=== PATIENT | male | born 1950 | race Caucasian/White ===

== ENCOUNTER 2016-12-23 08:50 | Inpatient (IN) ==
--- NOTE | 2016-12-23 08:57 | Emergency Department Note ---
Disposition Clinical Impression: Urethritis, Urethral bleeding, Atrial fibrillation Disposition: Admitted As Inpatient Condition: Good General Adult HPI - General Chief complaint: ED Urogenital-Male Stated complaint: Bleeding at calvillo site Time Seen by Provider: 12/23/16 08:55 - Related Data Home Medications Medication Instructions Recorded Confirmed Glimepiride [Amaryl] 4 mg PO BID 02/22/15 12/23/16 Lovastatin 20 mg PO DAILY 02/22/15 12/23/16 Furosemide [Lasix] 40 mg PO DAILY 02/12/16 12/23/16 Insulin ASPART [Novolog] 2 - 10 units SQ ACHS 02/12/16 12/23/16 Acetaminophen [Tylenol] 650 mg PO HS 03/11/16 12/23/16 Acetaminophen [Tylenol] 650 mg PO Q6H PRN 03/11/16 12/23/16 Diltiazem CD (24hr) [Cardizem CD] 240 mg PO DAILY 03/11/16 12/23/16 Loperamide [Imodium] 2 mg PO PRN PRN MDD 8 mg 03/11/16 12/23/16 SitaGLIPtin [Januvia] 100 mg PO DAILY 06/10/16 12/23/16 Warfarin [Coumadin] 2 mg PO DAILY 06/10/16 12/23/16 Warfarin [Coumadin] 2.5 mg PO DAILY 06/10/16 12/23/16 Clopidogrel [Plavix] 75 mg PO DAILY 12/09/16 12/23/16 Insulin Glargine,Hum.rec.anlog 10 unit SQ HS 12/09/16 12/23/16 [Lantus Solostar] Lisinopril [Zestril] 5 mg PO DAILY 12/09/16 12/23/16 Pantoprazole Sodium 20 mg PO DAILY 12/09/16 12/23/16 Betamethasone Melissa 0.1% Crm 1 appl TP BID PRN 12/23/16 12/23/16 [Valisone 0.1%] Hydrophilic Ointment [Aquabase] 1 appl TP BID PRN 12/23/16 12/23/16 Ketoconazole Shampoo [Nizoral 1 appl TP AD 12/23/16 12/23/16 Shampoo] Previous Rx's Medication Instructions Recorded Aspirin 81 mg PO DAILY #30 tab.chew 03/07/15 Folic Acid 1 mg PO DAILY tablet 03/07/15 Metformin [Glucophage] 1,000 mg PO BIDWM #60 tablet 03/07/15 Metoprolol [Lopressor] 100 mg PO BID #60 tablet 03/07/15 Allergies Allergy/AdvReac Type Severity Reaction Status Date / Time No Known Allergies Allergy Verified 12/09/16 09:52 Past Medical History - Past Medical History Medical history: Reports: atrial fibrillation, coronary artery disease, diabetes , hyperlipidemia, hypertension Surgical history: Reports: angioplasty/stent Psychiatric history: Reports: no psych history - Social History Smoking Status: Never smoker Smokeless Tobacco Status: No Alcohol use: Reports: occasionally Drug use: Reports: none Course Vital Signs Temperature 98.0 F 12/23/16 08:52 Pulse Rate 111 12/23/16 08:52 Respiratory Rate 17 12/23/16 08:52 Blood Pressure 180/128 12/23/16 08:52 O2 Sat by Pulse Oximetry 100 12/23/16 08:52 Temperature 98.3 F 12/25/16 04:21 Pulse Rate 65 12/25/16 04:21 Respiratory Rate 15 12/25/16 04:21 Blood Pressure 125/65 12/25/16 04:21 O2 Sat by Pulse Oximetry 94 12/25/16 04:21 Oxygen Delivery Oxygen Delivery Room Air Medical Decision Making - Lab Data Result diagrams: 12/25/16 05:43 12/25/16 05:43 Lab Results 12/23/16 12/23/16 12/23/16 Range/Units 09:19 09:19 09:19 WBC 9.4 (4.3-11.1) K/mcL RBC 5.11 (4.19-5.50) M/mcL Hgb 14.0 (12.9-16.9) g/dL Hct 43.5 (37.5-50.1) % MCV 85.1 (83.0-100.0) fL MCH 27.4 L (28.0-33.3) pg MCHC 32.2 (31.6-35.5) g/dL RDW 14.3 (11.5-14.5) % Plt Count 296 (140-400) K/mcL MPV 9.5 (9.4-12.4) fL Immature Gran % 0.6 (0-4) % Seg Neutrophils % 76.7 % Lymphocytes % 9.0 % Monocytes % 9.5 % Eosinophils % 3.6 % Basophils % 0.6 % Neutrophils # 7.2 (1.6-8.9) K/mcL Lymphocytes # 0.9 (0.6-4.6) K/mcL Monocytes # 0.9 (0.0-1.3) K/mcL Eosinophils # 0.3 (0.0-0.6) K/mcL Basophils # 0.1 (0.0-0.2) K/mcL PT 27.4 H (9.4-12.1) Seconds INR 2.5 APTT 35.6 (26.0-36.0) Seconds Sodium 139 (136-145) mEq/L Potassium 4.8 H (3.5-4.5) mEq/L Chloride 100 (98-109) mEq/L Carbon Dioxide 33 H (19-29) mEq/L BUN 23 (8-26) mg/dL Creatinine 1.18 (0.72-1.25) mg/dL Est GFR ( Amer) > 60 (> 60) Est GFR (Non-Af Amer) > 60 (> 60) BUN/Creatinine Ratio 19 (6-26) Glucose 181 H (70-99) mg/dL Est Mean Plasma Glucose mg/dl Hemoglobin A1c ( - 5.6) % Calculated Osmolality 296 (280-300) Calcium 9.5 (8.6-10.8) mg/dL 12/23/16 12/23/16 Range/Units 09:19 14:08 WBC (4.3-11.1) K/mcL RBC (4.19-5.50) M/mcL Hgb 14.4 (12.9-16.9) g/dL Hct 42.8 (37.5-50.1) % MCV (83.0-100.0) fL MCH (28.0-33.3) pg MCHC (31.6-35.5) g/dL RDW (11.5-14.5) % Plt Count (140-400) K/mcL MPV (9.4-12.4) fL Immature Gran % (0-4) % Seg Neutrophils % % Lymphocytes % % Monocytes % % Eosinophils % % Basophils % % Neutrophils # (1.6-8.9) K/mcL Lymphocytes # (0.6-4.6) K/mcL Monocytes # (0.0-1.3) K/mcL Eosinophils # (0.0-0.6) K/mcL Basophils # (0.0-0.2) K/mcL PT (9.4-12.1) Seconds INR APTT (26.0-36.0) Seconds Sodium (136-145) mEq/L Potassium (3.5-4.5) mEq/L Chloride (98-109) mEq/L Carbon Dioxide (19-29) mEq/L BUN (8-26) mg/dL Creatinine (0.72-1.25) mg/dL Est GFR ( Amer) (> 60) Est GFR (Non-Af Amer) (> 60) BUN/Creatinine Ratio (6-26) Glucose (70-99) mg/dL Est Mean Plasma Glucose 177 mg/dl Hemoglobin A1c 7.8 H ( - 5.6) % Calculated Osmolality (280-300) Calcium (8.6-10.8) mg/dL Attestation Statement - Attestation Attestation: I examined this patient and my medical decision-making was reviewed with the SUBACUTE NURSE/PA/Advanced Practice Nurse/Resident Physician. I agree with the documented findings, disposition and treatment plan as described except to the extent set forth below. [id number] time provided Patient presents from extended care facility for Calvillo catheter problems. It appears as if he is bleeding around his Calvillo catheter. Patient primarily evaluated by the mid-level provider Jayshree
[2016-12-23 09:29] LABS: Basophils # 0.1 K/mcL (0.0-0.2); Basophils % 0.6 %; Eosinophils # 0.3 K/mcL (0.0-0.6); Eosinophils % 3.6 %; Hematocrit 43.5 % (37.5-50.1); Immature Granulocytes % 0.6 % (0-4); Lymphocytes # 0.9 K/mcL (0.6-4.6); Mean Corpuscular HGB Conc 32.2 g/dL (31.6-35.5); Mean Corpuscular Hemoglobin 27.4 pg (28.0-33.3); Mean Corpuscular Volume 85.1 fL (83.0-100.0); Mean Platelet Volume 9.5 fL (9.4-12.4); Monocytes # 0.9 K/mcL (0.0-1.3); Monocytes % 9.5 %; Neutrophils # 7.2 K/mcL (1.6-8.9); Platelet Count 296 K/mcL (140-400); Red Blood Count 5.11 M/mcL (4.19-5.50); Red Cell Distribution Width 14.3 % (11.5-14.5); Segmented Neutrophils % 76.7 %
[2016-12-23 09:38] LABS: INR 2.5; Prothrombin Time 27.4 Seconds (9.4-12.1)
[2016-12-23 09:40] LABS: Activated Partial Thrombo Time 35.6 Seconds (26.0-36.0)
[2016-12-23 09:44] LABS: BUN/Creatinine Ratio 19 (6-26); Blood Urea Nitrogen 23 mg/dL (8-26); Calcium 9.5 mg/dL (8.6-10.8); Carbon Dioxide 33 mEq/L (19-29); Chloride 100 mEq/L (98-109); Glucose 181 mg/dL (70-99); Osmolality,Calculated 296 (280-300); Potassium 4.8 mEq/L (3.5-4.5); Sodium 139 mEq/L (136-145); eGFR For African Americans > 60 (> 60); eGFR For Non-African Americans > 60 (> 60)
--- NOTE | 2016-12-23 09:44 | Emergency Department Note ---
Disposition Clinical Impression: Urethritis, Urethral bleeding Atrial fibrillation Qualifiers: Atrial fibrillation type: chronic Qualified Code(s): I48.2 - Chronic atrial fibrillation Disposition: Admitted As Inpatient Condition: Good Forms: ED Satisfaction Letter Male Urogenital HPI - General Chief complaint: ED Urogenital-Male Stated complaint: Bleeding at calvillo site Time Seen by Provider: 12/23/16 08:55 Source: patient, EMS Mode of arrival: private vehicle Limitations: no limitations Nursing Notes Reviewed: Yes Vital Signs Reviewed: Yes - History of Present Illness Pt Subjective Complaint: other (bleeding around calvillo) Onset (ago): hour(s) (upon waking this AM) Duration: constant Location: penis Severity: mild, moderate Quality: other (no pain, just bleeding) Improves with: none Worsens with: none indwelling catheter (since 04/09; changed December 10 - twice - with subsequent bleeding upon insertion and diagnosis of UTI. Completed a course of Ceftin) Reports: denies other symptoms. Denies: discharge, swelling, mass, rash, urinary retention, hematuria, dysuria, fever, nausea/vomiting - Related Data Sexually active: No Home Medications Medication Instructions Recorded Confirmed Glimepiride [Amaryl] 4 mg PO BID 02/22/15 12/23/16 Lovastatin 20 mg PO DAILY 02/22/15 12/23/16 Furosemide [Lasix] 40 mg PO DAILY 02/12/16 12/23/16 Insulin ASPART [Novolog] 2 - 10 units SQ ACHS 02/12/16 12/23/16 Acetaminophen [Tylenol] 650 mg PO HS 03/11/16 12/23/16 Acetaminophen [Tylenol] 650 mg PO Q6H PRN 03/11/16 12/23/16 Diltiazem CD (24hr) [Cardizem CD] 240 mg PO DAILY 03/11/16 12/23/16 Loperamide [Imodium] 2 mg PO PRN PRN MDD 8 mg 03/11/16 12/23/16 SitaGLIPtin [Januvia] 100 mg PO DAILY 06/10/16 12/23/16 Warfarin [Coumadin] 2 mg PO DAILY 06/10/16 12/23/16 Warfarin [Coumadin] 2.5 mg PO DAILY 06/10/16 12/23/16 Clopidogrel [Plavix] 75 mg PO DAILY 12/09/16 12/23/16 Insulin Glargine,Hum.rec.anlog 10 unit SQ HS 12/09/16 12/23/16 [Lantus Solostar] Lisinopril [Zestril] 5 mg PO DAILY 12/09/16 12/23/16 Pantoprazole Sodium 20 mg PO DAILY 12/09/16 12/23/16 Betamethasone Melissa 0.1% Crm 1 appl TP BID PRN 12/23/16 12/23/16 [Valisone 0.1%] Hydrophilic Ointment [Aquabase] 1 appl TP BID PRN 12/23/16 12/23/16 Ketoconazole Shampoo [Nizoral 1 appl TP AD 12/23/16 12/23/16 Shampoo] Previous Rx's Medication Instructions Recorded Aspirin 81 mg PO DAILY #30 tab.chew 03/07/15 Folic Acid 1 mg PO DAILY tablet 03/07/15 Metformin [Glucophage] 1,000 mg PO BIDWM #60 tablet 03/07/15 Metoprolol [Lopressor] 100 mg PO BID #60 tablet 03/07/15 Allergies Allergy/AdvReac Type Severity Reaction Status Date / Time No Known Allergies Allergy Verified 12/09/16 09:52 All systems ED: reviewed and negative except as stated. Constitutional: Denies: fever, chills, weakness Respiratory: Denies: dyspnea Gastrointestinal: Denies: abdominal pain, nausea, vomiting Genitourinary: Denies: urgency, dysuria, frequency, hematuria ("no blood in the bag, just around the tube" per patient), discharge Musculoskeletal: Denies: back pain, neck pain, joint swelling, arthralgia Integumentary: Denies: rash Neurological: Denies: headache, weakness, numbness, paresthesias Hematological/Lymphatic: Reports: easy bleeding, easy bruising. Denies: lymphadenopathy Past Medical History - Past Medical History Attestation: Yes The following information was validated with the patient. Source: patient, old records reviewed Medical history: Reports: atrial fibrillation, coronary artery disease, CVA, diabetes, hyperlipidemia, hypertension Surgical history: Reports: angioplasty/stent Psychiatric history: Reports: no psych history - Social History Smoking Status: Never smoker Smokeless Tobacco Status: No Alcohol use: Reports: occasionally Drug use: Reports: none Physical Exam - General Limitations: no limitations General appearance: alert, in no apparent distress - Head Head exam: atraumatic, normocephalic, normal inspection - Eye Eye exam: Present: normal appearance, PERRL. Absent: scleral icterus, conjunctival injection, periorbital swelling - ENT ENT exam: mucous membranes moist - Neck Neck exam: Present: normal inspection, full ROM, trachea midline. Absent: meningismus - Chest Chest inspection: Present: normal inspection - Respiratory Respiratory exam: Present: normal lung sounds bilaterally. Absent: respiratory distress, wheezes, stridor - Cardiovascular Cardiovascular exam: Present: tachycardia, irregular rhythm. Absent: systolic murmur, diastolic murmur - Male exam: Present: normal testicular lie, circumcised, urethral discharge (blood leaking out around the catheter tube from the urethral meatus). Absent: phimosis, paraphimosis, penile swelling, lesions, induration, erythema, ulcerations, inguinal lymphadenopathy, scrotal swelling - Extremities Exam Extremities exam: Present: normal capillary refill, pedal edema (1+ non-pitting edema, bilateral feet to mid matthews), other (stasis dermatitis bilateral lower legs). Absent: tenderness, joint swelling, calf tenderness - Neurological Exam Neurological exam: Present: alert, oriented X3, CN II-XII intact - Psychiatric Psychiatric exam: Present: normal affect, normal mood - Skin Skin exam: Present: warm, dry, intact Course - Reevaluation(s) Reevaluation #1: Patient still denies pain. Vitals are improved. Bladder scan shows a volume of 24 mL. The tubing was changed and irrigation was attempted but was unsuccessful. The bleeding has stopped. There is a small clot which has formed around the urethral meatus. Patient's INR is 2.5. He is making urine and per the nurse at [facility], patient had a little more than 500 mL out this morning. When patient arrived in the ER. He had approximately 20 or 30 mL of dark yellow-colored urine in the bag. The bleeding was occurring around the tubing extending from the urethral meatus. This has stopped. Patient is not acutely anemic but is on Coumadin for atrial fibrillation. He also has a history of recurrent urinary tract infections, some of which have been multidrug-resistant. He has a history of altered mental status and of manipulating the Calvillo catheter per his nurse at [facility]. For these reasons, we feel that admission for observation would be the best course course of action. Time: 12:40 Reevaluation #2: Patient has been admitted to the hospitalist. Hospitalist has written orders and consulted urology. Dr. Falcon came to see the patient, change the Calvillo catheter, and bleeding resumed. He has requested that I order vitamin K for the patient right now. This order was discussed with Dr. Garibay, as this patient is technically no longer an ER patient, but rather an inpatient. He agrees with the plan to order and give the vitamin K now at the recommendation of the urologist. We have discussed giving vitamin K earlier in the course, however, the bleeding had stopped, and there was no blood in the tubing. There were a few drops of yellow urine in the tubing after it was changed by the nurse. Time: 14:25 - Consultations Consultation #1: Case was discussed with Dr. Falcon, neon molder for urology. We reviewed patient 's labs and exam findings. As the patient does not have blood or clots in the bag, he recommends holding the Coumadin and having the patient follow-up in the office on Tuesday. Consultation #2: Case was discussed with the hospitalist. She will accept the patient for admission. Time: 14:00 Vital Signs Temperature 98.0 F 12/23/16 08:52 Pulse Rate 111 12/23/16 08:52 Respiratory Rate 17 12/23/16 08:52 Blood Pressure 180/128 12/23/16 08:52 O2 Sat by Pulse Oximetry 100 12/23/16 08:52 Temperature 98.0 F 12/23/16 08:52 Pulse Rate 121 12/23/16 13:00 Respiratory Rate 18 12/23/16 13:00 Blood Pressure 163/100 12/23/16 13:00 O2 Sat by Pulse Oximetry 98 12/23/16 13:00 Oxygen Delivery Oxygen Delivery Room Air Urogenital-Male - Medical Records Medical records reviewed: Yes I reviewed the patient's medical records. - Lab Data Lab results reviewed: Yes I reviewed the patient's lab results. Lab results narrative: Laboratory Last Values WBC 9.4 K/mcL (4.3-11.1) 12/23/16 09:19 RBC 5.11 M/mcL (4.19-5.50) 12/23/16 09:19 Hgb 14.4 g/dL (12.9-16.9) 12/23/16 14:08 Hct 42.8 % (37.5-50.1) 12/23/16 14:08 MCV 85.1 fL (83.0-100.0) 12/23/16 09:19 MCH 27.4 pg (28.0-33.3) L 12/23/16 09:19 MCHC 32.2 g/dL (31.6-35.5) 12/23/16 09:19 RDW 14.3 % (11.5-14.5) 12/23/16 09:19 Plt Count 296 K/mcL (140-400) 12/23/16 09:19 MPV 9.5 fL (9.4-12.4) 12/23/16 09:19 Immature Gran % 0.6 % (0-4) 12/23/16 09:19 Seg Neutrophils % 76.7 % 12/23/16 09:19 Lymphocytes % 9.0 % 12/23/16 09:19 Monocytes % 9.5 % 12/23/16 09:19 Eosinophils % 3.6 % 12/23/16 09:19 Basophils % 0.6 % 12/23/16 09:19 Neutrophils # 7.2 K/mcL (1.6-8.9) 12/23/16 09:19 Lymphocytes # 0.9 K/mcL (0.6-4.6) 12/23/16 09:19 Monocytes # 0.9 K/mcL (0.0-1.3) 12/23/16 09:19 Eosinophils # 0.3 K/mcL (0.0-0.6) 12/23/16 09:19 Basophils # 0.1 K/mcL (0.0-0.2) 12/23/16 09:19 PT 27.4 Seconds (9.4-12.1) H 12/23/16 09:19 INR 2.5 12/23/16 09:19 APTT 35.6 Seconds (26.0-36.0) 12/23/16 09:19 Sodium 139 mEq/L (136-145) 12/23/16 09:19 Potassium 4.8 mEq/L (3.5-4.5) H 12/23/16 09:19 Chloride 100 mEq/L (98-109) 12/23/16 09:19 Carbon Dioxide 33 mEq/L (19-29) H 12/23/16 09:19 BUN 23 mg/dL (8-26) 12/23/16 09:19 Creatinine 1.18 mg/dL (0.72-1.25) 12/23/16 09:19 Est GFR ( Amer) > 60 (> 60) 12/23/16 09:19 Est GFR (Non-Af Amer) > 60 (> 60) 12/23/16 09:19 BUN/Creatinine Ratio 19 (6-26) 12/23/16 09:19 Glucose 181 mg/dL (70-99) H 12/23/16 09:19 Calculated Osmolality 296 (280-300) 12/23/16 09:19 Calcium 9.5 mg/dL (8.6-10.8) 12/23/16 09:19 Result diagrams: 12/23/16 09:19 12/23/16 09:19 Lab Results 12/23/16 12/23/16 12/23/16 Range/Units 09:19 09:19 09:19 WBC 9.4 (4.3-11.1) K/mcL RBC 5.11 (4.19-5.50) M/mcL Hgb 14.0 (12.9-16.9) g/dL Hct 43.5 (37.5-50.1) % MCV 85.1 (83.0-100.0) fL MCH 27.4 L (28.0-33.3) pg MCHC 32.2 (31.6-35.5) g/dL RDW 14.3 (11.5-14.5) % Plt Count 296 (140-400) K/mcL MPV 9.5 (9.4-12.4) fL Immature Gran % 0.6 (0-4) % Seg Neutrophils % 76.7 % Lymphocytes % 9.0 % Monocytes % 9.5 % Eosinophils % 3.6 % Basophils % 0.6 % Neutrophils # 7.2 (1.6-8.9) K/mcL Lymphocytes # 0.9 (0.6-4.6) K/mcL Monocytes # 0.9 (0.0-1.3) K/mcL Eosinophils # 0.3 (0.0-0.6) K/mcL Basophils # 0.1 (0.0-0.2) K/mcL PT 27.4 H (9.4-12.1) Seconds INR 2.5 APTT 35.6 (26.0-36.0) Seconds Sodium 139 (136-145) mEq/L Potassium 4.8 H (3.5-4.5) mEq/L Chloride 100 (98-109) mEq/L Carbon Dioxide 33 H (19-29) mEq/L BUN 23 (8-26) mg/dL Creatinine 1.18 (0.72-1.25) mg/dL Est GFR ( Amer) > 60 (> 60) Est GFR (Non-Af Amer) > 60 (> 60) BUN/Creatinine Ratio 19 (6-26) Glucose 181 H (70-99) mg/dL Calculated Osmolality 296 (280-300) Calcium 9.5 (8.6-10.8) mg/dL
[2016-12-23] MEDS ORDERED: Diltiazem CD (24hr) 240 MG CAPSULE PO ONE (10:32)
[2016-12-23] MEDS ORDERED: *HR* HYDROmorphone (PF) 1 MG/ML SYRINGE IVP ONE (13:52)
[2016-12-23] MEDS ORDERED: Ondansetron ODT 4 MG TAB.RAPDIS SL PRN (13:54)
[2016-12-23] MEDS ORDERED: Acetaminophen 325 MG TABLET PO PRN (13:54)
[2016-12-23] MEDS ORDERED: *HR* HYDROmorphone (PF) 1 MG/ML SYRINGE IVP PRN (13:54)
[2016-12-23] MEDS ORDERED: Naloxone 0.4 MG/ML INJ IVP PRN (13:54)
[2016-12-23] MEDS ORDERED: *HR* HYDROcodone/Acet 5/325 mg TABLET PO PRN (13:54)
[2016-12-23] MEDS ORDERED: *HR* Phytonadione 10 MG/ML AMPUL SQ ONE (14:21)
[2016-12-23 14:22] LABS: Hematocrit 42.8 % (37.5-50.1); Hemoglobin 14.4 g/dL (12.9-16.9)
[2016-12-23] MEDS: Metoprolol 100 MG TABLET PO SCH ×2 (14:33→21:21)
[2016-12-23] MEDS ORDERED: D5% in Water 1,000 ML IVC PRN (14:41)
[2016-12-23] MEDS ORDERED: *HR* Dextrose 50 % in Water (Syg) 50 ML SYRINGE IVP PRN (14:41)
[2016-12-23] MEDS ORDERED: Dextrose Gel 15 GM PO PRN ×2 (14:41)
--- NOTE | 2016-12-23 15:09 | Internal Med History&Physical ---
<Johann Del Toro T - Last Filed: 12/23/16 17:41> Date of Encounter: 12/23/16 Internal Medicine - H&P: HPI History of present illness: Mr. Acosta is a 66 year old male Past Med Surg Social Fam HX - Family History Father Hx Family Genitourinary Disorders: Yes (Prostate cancer) Internal Medicine - H&P: Meds Glimepiride [Amaryl] 4 mg PO BID 02/22/15 [History] Lovastatin 20 mg PO DAILY 02/22/15 [History] Aspirin 81 mg PO DAILY #30 tab.chew 03/07/15 [Rx] Folic Acid 1 mg PO DAILY tablet 03/07/15 [Rx] Metformin [Glucophage] 1,000 mg PO BIDWM #60 tablet 03/07/15 [Rx] Metoprolol [Lopressor] 100 mg PO BID #60 tablet 03/07/15 [Rx] Furosemide [Lasix] 40 mg PO DAILY 02/12/16 [History] Insulin ASPART [Novolog] 2 - 10 units SQ ACHS 02/12/16 [History] Acetaminophen [Tylenol] 650 mg PO HS 03/11/16 [History] Acetaminophen [Tylenol] 650 mg PO Q6H PRN 03/11/16 [History] Diltiazem CD (24hr) [Cardizem CD] 240 mg PO DAILY 03/11/16 [History] Loperamide [Imodium] 2 mg PO PRN PRN MDD 8 mg 03/11/16 [History] SitaGLIPtin [Januvia] 100 mg PO DAILY 06/10/16 [History] Warfarin [Coumadin] 2 mg PO DAILY 06/10/16 [History] Warfarin [Coumadin] 2.5 mg PO DAILY 06/10/16 [History] Clopidogrel [Plavix] 75 mg PO DAILY 12/09/16 [History] Insulin Glargine,Hum.rec.anlog [Lantus Solostar] 10 unit SQ HS 12/09/16 [History ] Lisinopril [Zestril] 5 mg PO DAILY 12/09/16 [History] Pantoprazole Sodium 20 mg PO DAILY 12/09/16 [History] Betamethasone Melissa 0.1% Crm [Valisone 0.1%] 1 appl TP BID PRN 12/23/16 [History] Hydrophilic Ointment [Aquabase] 1 appl TP BID PRN 12/23/16 [History] Ketoconazole Shampoo [Nizoral Shampoo] 1 appl TP AD 12/23/16 [History] Allergies No Known Allergies Allergy (Verified 12/09/16 09:52) All Systems PM: A 10-system review of systems was performed and is negative for pertinent findings except as documented above in the HPI. 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, recurrent UTIs Patient is admitted this time for seth hematuria with acute urinary retention Urology has been consulted and has evaluated him VSS, chest is clear, HS S1, S2, abdomen is soft, with calvillo draining bloody urine I am unsure why he is on triple therapy-ASA/Plavix/coumadin Hold blood thinners for now, patient is hemodynamically stable, patients HB is stable Patient may need to be discharged on only ASA/Coumadin at time of discharge Rest of details as in SID Iraheta's documentation <Flores Iniguez - Last Filed: 12/23/16 20:34> Date of Encounter: 12/23/16 Time of Encounter: 14:59 Assessment and Plan (1) Urethral bleeding Current visit: Yes Status: Acute Patient with urethral bleeding, with clots leading to blocking calvillo catheter. Hgb stable at 14.0. Patient on coumadin for afib. INR therapuetic at 2.5. Patient also on aspirin and plavix, and upon reviewing records, it is unclear why patient is on triple therapy. Hold aspirin, plavix and coumadin. 1 dose of vitamin K given to reverse coumadin. Recheck PT/INR with morning labs. Check H/H Q6hrs. Urology consulted, Dr. Falcon saw patient and exchanged catheter and irrigated. Continuous bladder irrigation. (2) Atrial fibrillation Current visit: Yes Status: Chronic Patient with atrial fibrillation. On coumadin for anticoagulation. On metoprolol and cardizem for rate and rhythm control. Patient was tachycardic earlier. He was in pain at the time. Given pain medication, and his morning doses of metoprolol and cardizem and HR improved. Hold coumadin for active bleeding. Qualifiers: Atrial fibrillation type: chronic Qualified Code(s): I48.2 - Chronic atrial fibrillation (3) HTN (hypertension) Current visit: No Status: Chronic Continue home doses of lisinopril, metoprolol, cardizem. Qualifiers: Hypertension type: essential hypertension Qualified Code(s): I10 - Essential (primary) hypertension (4) Type 2 diabetes mellitus Current visit: No Status: Chronic Check blood sugars ACHS hold home doses of januvia and glimeperide. continue home basal dose of insulin, Levemir 10u HS. Sliding scale correction dose ACHS hypoglycemic protocol. Qualifiers: Diabetes mellitus complication status: with kidney complications Diabetes mellitus complication detail: with chronic kidney disease Diabetes mellitus mcc insulin use: without superintendent [employer] use Chronic kidney disease stage: stage 3 (moderate) Qualified Code(s): E11.22 - Type 2 diabetes mellitus with diabetic chronic kidney disease; N18.3 - Chronic kidney disease, stage 3 ( moderate) (5) DVT prophylaxis Current visit: Yes Status: Acute Internal Medicine - H&P: HPI Chief complaint: bleeding around calvillo catheter Admitted From: Emergency Dept Plans for Post Hospital Care: Transfer Disability Specialist Care History of present illness: Mr. 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 He should not reports he woke up this morning covered in blood from his calvillo catheter site. He reports his catheter has been giving him trouble on and off for several weeks, with bleeding. Catheter was last changed December 09 due to bleeding. He has also had multiple UTIs since his calvillo catheter placement last fall. He follows with Dr. Salinas in urology as an outpatient. Evaluation in the ED revealed INR was therapeutic at 2.5. Hgb and Hct were stable at 14.0 and 43.5. Urology was consulted and advised irrigation and holding anti-coagulation. The tubing and bag of the calvillo were changed out and irrigation was attempted, but unsuccessful. On my assessment, patient unable to pass urine as well, and feeling very uncomfortable, there was a large blood clot covering his entire penis. Nurse reports most recent bladder scan showed over 200cc. I spoke with Dr. Falcno of urology and updated him on the patient's inability to pass urine and the unsuccessful attempt at irrigation, he will see the patient. Patient's heart rate tachycardic and irregular, he does have atrial fibrillation. He was given his daily dose of cardizem and lisinopril in the ED. Tachycardia may be related to his pain. Ordered his dose of metoprolol now , one dose of dilaudid, and an ekg. Past Med Surg Social Fam HX - Past Medical History Medical history: atrial fibrillation, coronary artery disease, CVA, diabetes, hyperlipidemia, hypertension Psychiatric history: no psych history - Past Surgical History Surgical History: angioplasty/stent - Social History Smoking Status: Never smoker Smokeless Tobacco Status: No Alcohol use: occasionally Drug use: none All Systems PM: A 10-system review of systems was performed and is negative for pertinent findings except as documented above in the HPI. - Constitutional Constitutional: no chills, no fever(s), no night sweats - EENT Eyes: no change in vision, no discharge, no pain, no photophobia Ears: no ear discharge, no ear pain, no tinnitus Nose, mouth and throat: no dysphagia, no nasal discharge, no neck pain, no sore throat - Cardiovascular Cardiovascular ROS IM: no chest pain, no diaphoresis, no dyspnea, no lightheadedness, no palpitations, no syncope - Respiratory Respiratory: no cough, no dyspnea, no wheezing, no excessive phlegm production - Gastrointestinal Gastrointestinal: abdominal pain, no diarrhea, no hematemesis, no hematochezia, no melena, no nausea, no vomiting - Genitourinary Genitourinary ROS male: dysuria, hematuria - Musculoskeletal Musculoskeletal ROS IM: no numbness, no tingling - Integumentary Integumentary IM: no rash, no unusual bruising - Neurological Neurological ROS: no confusion, no convulsions, no focal weakness, no numbness, no tingling, no tremor(s) - Hematologic/Lymphatic Hematologic/Lymphatic: no easy bruising - Constitutional Vitals: Temp Pulse Resp BP Pulse Ox 98.0 F 108 16 128/112 98 12/23/16 08:52 12/23/16 14:12 12/23/16 14:12 12/23/16 14:12 12/23/16 14:12 General appearance: Present: disheveled, mild distress, A&O X 3 - Head Head exam: Present: atraumatic, normocephalic - Eye Eye exam: Present: PERRL, conjuntiva pink, sclera anicteric Pupils: Present: PERRL - Neck Neck exam general surgery: Present: supple, trachea midline. Absent: lymphadenopathy - Respiratory Respiratory exam: Present: CTAB. Absent: accessory muscle use, rales, rhonchi, wheezes - Cardiovascular Cardiovascular exam: Present: irregular rhythm, +S1, +S2, tachycardia. Absent: diastolic murmur, gallop, rubs, systolic murmur - GI/Abdominal GI/Abdominal exam: Present: distended, normal bowel sounds, soft, tenderness, no peritoneal signs - Extremities Exam Extremities exam: Present: pedal edema, radial pulses palpable and symetrical. Absent: calf tenderness, cyanotic Additional comments: BLE cold with diminished pulses. - Neurological Exam Neurological exam: Present: CN II-XII intact, oriented X3, no focal deficits. Absent: facial droop, speech deficit - Skin Skin exam: Present: dry, intact Internal Med - H&P Results - Labs CBC & Chem 7: 12/23/16 14:08 12/23/16 09:19 Labs: All Lab Results (24 Hours) 12/23/16 12/23/16 12/23/16 Range/Units 09:19 09:19 09:19 WBC 9.4 (4.3-11.1) K/mcL RBC 5.11 (4.19-5.50) M/mcL Hgb 14.0 (12.9-16.9) g/dL Hct 43.5 (37.5-50.1) % MCV 85.1 (83.0-100.0) fL MCH 27.4 L (28.0-33.3) pg MCHC 32.2 (31.6-35.5) g/dL RDW 14.3 (11.5-14.5) % Plt Count 296 (140-400) K/mcL MPV 9.5 (9.4-12.4) fL Immature Gran % 0.6 (0-4) % Seg Neutrophils % 76.7 % Lymphocytes % 9.0 % Monocytes % 9.5 % Eosinophils % 3.6 % Basophils % 0.6 % Neutrophils # 7.2 (1.6-8.9) K/mcL Lymphocytes # 0.9 (0.6-4.6) K/mcL Monocytes # 0.9 (0.0-1.3) K/mcL Eosinophils # 0.3 (0.0-0.6) K/mcL Basophils # 0.1 (0.0-0.2) K/mcL PT 27.4 H (9.4-12.1) Seconds INR 2.5 APTT 35.6 (26.0-36.0) Seconds Sodium 139 (136-145) mEq/L Potassium 4.8 H (3.5-4.5) mEq/L Chloride 100 (98-109) mEq/L Carbon Dioxide 33 H (19-29) mEq/L BUN 23 (8-26) mg/dL Creatinine 1.18 (0.72-1.25) mg/dL Est GFR ( Amer) > 60 (> 60) Est GFR (Non-Af Amer) > 60 (> 60) BUN/Creatinine Ratio 19 (6-26) Glucose 181 H (70-99) mg/dL Est Mean Plasma Glucose mg/dl Hemoglobin A1c ( - 5.6) % Calculated Osmolality 296 (280-300) Calcium 9.5 (8.6-10.8) mg/dL 12/23/16 12/23/16 Range/Units 09:19 14:08 WBC (4.3-11.1) K/mcL RBC (4.19-5.50) M/mcL Hgb 14.4 (12.9-16.9) g/dL Hct 42.8 (37.5-50.1) % MCV (83.0-100.0) fL MCH (28.0-33.3) pg MCHC (31.6-35.5) g/dL RDW (11.5-14.5) % Plt Count (140-400) K/mcL MPV (9.4-12.4) fL Immature Gran % (0-4) % Seg Neutrophils % % Lymphocytes % % Monocytes % % Eosinophils % % Basophils % % Neutrophils # (1.6-8.9) K/mcL Lymphocytes # (0.6-4.6) K/mcL Monocytes # (0.0-1.3) K/mcL Eosinophils # (0.0-0.6) K/mcL Basophils # (0.0-0.2) K/mcL PT (9.4-12.1) Seconds INR APTT (26.0-36.0) Seconds Sodium (136-145) mEq/L Potassium (3.5-4.5) mEq/L Chloride (98-109) mEq/L Carbon Dioxide (19-29) mEq/L BUN (8-26) mg/dL Creatinine (0.72-1.25) mg/dL Est GFR ( Amer) (> 60) Est GFR (Non-Af Amer) (> 60) BUN/Creatinine Ratio (6-26) Glucose (70-99) mg/dL Est Mean Plasma Glucose 177 mg/dl Hemoglobin A1c 7.8 H ( - 5.6) % Calculated Osmolality (280-300) Calcium (8.6-10.8) mg/dL
[2016-12-23 15:11] LABS: Hemoglobin A1C 7.8 %
--- NOTE | 2016-12-23 17:21 | Urology - Consult Note ---
Date of Encounter: 12/23/16 Time of Encounter: 17:15 - Assessment and Plan (1) Urethral bleeding Current Visit: Yes Status: Acute Assessment and plan: 66-year-old man with a history of hematuria. I changed his catheter to a 24 [place] 3-way catheter. I irrigated a large amount of blood clot out. Traction was placed on the catheter. Bleeding eventually improved. I was able to leave him on irrigation. I recommended to stop the Coumadin and to reverse it. Once his bleeding has resolved, we can consider restarting it. We will continue the three-way catheter for now and eventually wean off the irrigation. He does not require surgery at this point. I prefer to reverse the medical causes for his bleeding. I anticipate normalization of his INR will lead to resolution of his bleeding. If not, we can consider an operative cystoscopy and fulguration. Urology CN:LUIZ Consult date: 12/23/16 Reason for consult Urology: Gross Hematuria Requesting physician: Flores Iniguez History of present illness: 66-year-old man with a history of urinary retention or stents to the emergency department with gross hematuria and bleeding around the catheter. He is currently on Coumadin. He was previously seen by Dr. Salinas in regards to placement of the suprapubic tube, but was not interested and 1 at that time. Today he is noted bleeding around the catheter, but his urine has remained fairly clear. He presented to the emergency department earlier in the day, but as the day went on the bleeding worsened. Eventually his catheter was not draining well. I was asked to see the patient to evaluate for the bleeding around his catheter. Past Med Surg Social Fam HX - Past Medical History Medical history: atrial fibrillation, coronary artery disease, CVA, diabetes, hyperlipidemia, hypertension Psychiatric history: no psych history - Past Surgical History Surgical History: angioplasty/stent - Social History Smoking Status: Never smoker Smokeless Tobacco Status: No Alcohol use: occasionally Drug use: none - Family History Father Hx Family Genitourinary Disorders: Yes (Prostate cancer) Medications and Allergies Glimepiride [Amaryl] 4 mg PO BID 02/22/15 [History] Lovastatin 20 mg PO DAILY 02/22/15 [History] Aspirin 81 mg PO DAILY #30 tab.chew 03/07/15 [Rx] Folic Acid 1 mg PO DAILY tablet 08/14/15 [Rx] Metformin [Glucophage] 1,000 mg PO BIDWM #60 tablet 03/07/15 [Rx] Metoprolol [Lopressor] 100 mg PO BID #60 tablet 03/07/15 [Rx] Furosemide [Lasix] 40 mg PO DAILY 02/12/16 [History] Insulin ASPART [Novolog] 2 - 10 units SQ ACHS 02/12/16 [History] Acetaminophen [Tylenol] 650 mg PO HS 03/11/16 [History] Acetaminophen [Tylenol] 650 mg PO Q6H PRN 03/11/16 [History] Diltiazem CD (24hr) [Cardizem CD] 240 mg PO DAILY 03/11/16 [History] Loperamide [Imodium] 2 mg PO PRN PRN MDD 8 mg 03/11/16 [History] SitaGLIPtin [Januvia] 100 mg PO DAILY 06/10/16 [History] Warfarin [Coumadin] 2 mg PO DAILY 06/10/16 [History] Warfarin [Coumadin] 2.5 mg PO DAILY 06/10/16 [History] Clopidogrel [Plavix] 75 mg PO DAILY 12/09/16 [History] Insulin Glargine,Hum.rec.anlog [Lantus Solostar] 10 unit SQ HS 12/09/16 [History ] Lisinopril [Zestril] 5 mg PO DAILY 12/09/16 [History] Pantoprazole Sodium 20 mg PO DAILY 12/09/16 [History] Betamethasone Melissa 0.1% Crm [Valisone 0.1%] 1 appl TP BID PRN 12/23/16 [History] Hydrophilic Ointment [Aquabase] 1 appl TP BID PRN 12/23/16 [History] Ketoconazole Shampoo [Nizoral Shampoo] 1 appl TP AD 12/23/16 [History] Allergies No Known Allergies Allergy (Verified 12/09/16 09:52) Review of Systems - Constitutional no chills, no fever(s) - EENT Nose, mouth and throat: no dizziness - Cardiovascular no chest pain - Respiratory no dyspnea - Gastrointestinal no nausea, no vomiting - Genitourinary hematuria, no flank pain - Musculoskeletal no back pain - Integumentary no erythema, no rash - Neurological no weakness - Psychiatric no suicidal ideation - Hematologic/Lymphatic no easy bleeding - Allergic/Immunologic no wheezing Exam Initial Vital Signs Temp Pulse Resp BP Pulse Ox 98.0 F 111 17 180/128 100 12/23/16 08:52 12/23/16 08:52 12/23/16 08:52 12/23/16 08:52 12/23/16 08:52 - General physical appearance Present: well developed, well nourished, no distress - Eyes Absent: icteric - ENT Present: normal nares - Neck Present: trachea midline - Respiratory Present: normal respiratory effort - Cardiovascular Cardiovascular exam IM: RRR - Abdomen Abdomen: Present: soft - Genitourinary other ([address] catheter in place with CBI hooked up. Very large clot seen around the catheter at the meatus. Minimal urine seen in catheter.) Urology Results - Labs 12/23/16 14:08 12/23/16 09:19 Abnormal lab results MCH 27.4 pg (28.0-33.3) L 12/23/16 09:19 PT 27.4 Seconds (9.4-12.1) H 12/23/16 09:19 Potassium 4.8 mEq/L (3.5-4.5) H 12/23/16 09:19 Carbon Dioxide 33 mEq/L (19-29) H 12/23/16 09:19 Glucose 181 mg/dL (70-99) H 12/23/16 09:19 Hemoglobin A1c 7.8 % (-5.6) H 12/23/16 09:19 All other labs normal. Procedures:Urology - Catheter Insertion (Urinary) Additional comments: His old 20 Gu[place]ian catheter was removed. Under sterile conditions I placed a 24 [place] 3-way catheter. 10 mL of sterile water was instilled into the balloon. I then vigorously irrigated and the bladder and a large amount of clot returned. Eventually the urine cleared and he was placed on continuous bladder irrigation. Consult Discharge Plan - Plan Referrals: NO,PCP [Primary Care Provider] -
[2016-12-23] MEDS ORDERED: *HR* Phytonadione 5 MG TABLET PO ONE (18:24)
[2016-12-23] MEDS: Insulin LISPRO 300 UNITS/3 ML VIAL SQ SCH ×2 (18:36→21:36)
[2016-12-23 21:25] LABS: Hematocrit 36.1 % (37.5-50.1)
[2016-12-23 21:26] LABS: Hemoglobin 11.5 g/dL (12.9-16.9)
--- NOTE | 2016-12-23 21:30 | Electrocardiograph Report ---
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
[2016-12-23] MEDS: Insulin DETEMIR 100 UNIT/ML X5UNITS SQ SCH (21:39)
[2016-12-23 23:02] LABS: Bilirubin,Urine Negative (Negative); Blood,Urine Large (Negative); Clarity,Urine Turbid (Clear); Color,Urine Yellow (Yellow); Glucose,Urine (UA) 500 mg/dL (Normal); Ketones,Urine Negative (Negative); Leukocyte Esterase,Urine Large (Negative); Nitrite,Urine Negative (Negative); PH,Urine 5.5 pH Units (5.0-8.0); Protein,Urine 30 mg/dL (Neg-Trace); Specific Gravity,Urine 1.018 (1.010-1.025); Urobilinogen,Urine Normal (Normal)
[2016-12-23 23:04] LABS: Bacteria,Urine None Seen per hpf (None-Few); Hyaline Casts,Urine None Seen per lpf (None-Few); RBC,Urine TNTC per hpf (0-3); Squamous Epithelial Cell,Urine Many per lpf (None-Few); WBC,Urine TNTC per hpf (0-3)
[2016-12-24 05:29] LABS: Prothrombin Time 22.3 Seconds (9.4-12.1)
[2016-12-24 05:32] LABS: Activated Partial Thrombo Time 30.3 Seconds (26.0-36.0)
[2016-12-24 05:43] LABS: BUN/Creatinine Ratio 27 (6-26); Blood Urea Nitrogen 30 mg/dL (8-26); Calcium 8.8 mg/dL (8.6-10.8); Carbon Dioxide 30 mEq/L (19-29); Chloride 102 mEq/L (98-109); Glucose 196 mg/dL (70-99); Osmolality,Calculated 298 (280-300); Potassium 4.5 mEq/L (3.5-4.5); Sodium 138 mEq/L (136-145); eGFR For African Americans > 60 (> 60); eGFR For Non-African Americans > 60 (> 60)
[2016-12-24 05:46] LABS: Basophils # 0.1 K/mcL (0.0-0.2); Basophils % 0.4 %; Eosinophils # 0.1 K/mcL (0.0-0.6); Eosinophils % 0.6 %; Hematocrit 34.9 % (37.5-50.1); Hemoglobin 11.4 g/dL (12.9-16.9); Immature Granulocytes % 0.6 % (0-4); Lymphocytes # 0.9 K/mcL (0.6-4.6); Lymphocytes % 6.2 %; Mean Corpuscular HGB Conc 32.7 g/dL (31.6-35.5); Mean Corpuscular Hemoglobin 27.9 pg (28.0-33.3); Mean Corpuscular Volume 85.3 fL (83.0-100.0); Mean Platelet Volume 10.4 fL (9.4-12.4); Monocytes # 1.3 K/mcL (0.0-1.3); Monocytes % 9.4 %; Neutrophils # 11.6 K/mcL (1.6-8.9); Platelet Count 246 K/mcL (140-400); Red Blood Count 4.09 M/mcL (4.19-5.50); Red Cell Distribution Width 14.6 % (11.5-14.5); Segmented Neutrophils % 82.8 %
[2016-12-24] MEDS: Insulin LISPRO 300 UNITS/3 ML VIAL SQ SCH ×4 (08:24→21:32)
[2016-12-24] MEDS: Diltiazem CD (24hr) 240 MG CAPSULE PO SCH (08:26)
[2016-12-24] MEDS: Metoprolol 100 MG TABLET PO SCH ×2 (08:26→21:33)
[2016-12-24] MEDS: Furosemide 40 MG TABLET PO SCH (08:26)
[2016-12-24] MEDS: Folic Acid 1 MG TABLET PO SCH (08:26)
[2016-12-24] MEDS ORDERED: *HR* Phytonadione 5 MG TABLET PO ONE (08:29)
--- NOTE | 2016-12-24 09:04 | Urology Progress Note ---
Date of Encounter: 12/24/16 Time of Encounter: 09:01 - Assessment and Plan (1) Urethral bleeding Current Visit: Yes Status: Acute Assessment and plan: 66 year old man with hematuria. It has resolved at this point. OKay to turn off CBI. He can follow up with Dr. Salinas as an outpatient. Progress Note Narrative: Doing well today. Urine is clear on slow CBI. Objective Initial Vital Signs Temp Pulse Resp BP Pulse Ox 98.0 F 111 17 180/128 100 12/23/16 08:52 12/23/16 08:52 12/23/16 08:52 12/23/16 08:52 12/23/16 08:52 - General physical appearance Present: well developed, well nourished, no distress - Respiratory Present: normal respiratory effort - Abdomen Present: soft - Genitourinary Urine Appearance: Present: Clear - Labs 12/24/16 05:16 12/24/16 05:16 Diabetes panel 12/24/16 Range/Units 05:16 Sodium 138 (136-145) mEq/L Potassium 4.5 (3.5-4.5) mEq/L Chloride 102 (98-109) mEq/L Carbon Dioxide 30 H (19-29) mEq/L BUN 30 H (8-26) mg/dL Creatinine 1.12 (0.72-1.25) mg/dL Glucose 196 H (70-99) mg/dL Calcium 8.8 (8.6-10.8) mg/dL Calcium panel 12/24/16 Range/Units 05:16 Calcium 8.8 (8.6-10.8) mg/dL Pituitary panel 12/24/16 Range/Units 05:16 Sodium 138 (136-145) mEq/L Potassium 4.5 (3.5-4.5) mEq/L Chloride 102 (98-109) mEq/L Carbon Dioxide 30 H (19-29) mEq/L BUN 30 H (8-26) mg/dL Creatinine 1.12 (0.72-1.25) mg/dL Glucose 196 H (70-99) mg/dL Calcium 8.8 (8.6-10.8) mg/dL Adrenal panel 12/24/16 Range/Units 05:16 Sodium 138 (136-145) mEq/L Potassium 4.5 (3.5-4.5) mEq/L Chloride 102 (98-109) mEq/L Carbon Dioxide 30 H (19-29) mEq/L BUN 30 H (8-26) mg/dL Creatinine 1.12 (0.72-1.25) mg/dL Glucose 196 H (70-99) mg/dL Calcium 8.8 (8.6-10.8) mg/dL - VTE Documentation of Mechanical Device: Venous foot pump, device Consult Discharge Plan - Plan Referrals: NO,PCP [Primary Care Provider] -
--- NOTE | 2016-12-24 12:21 | Internal Med Progress Note ---
Date of Encounter: 12/24/16 Time of Encounter: 12:19 - Assessment and plan (1) HTN (hypertension) Current Visit: Yes Status: Chronic Assessment and plan: Continue meds Qualifiers: Hypertension type: essential hypertension Qualified Code(s): I10 - Essential (primary) hypertension (2) Atrial fibrillation Current Visit: Yes Status: Chronic Assessment and plan: HR controlled, continue meds Hold Coumadin, restart a.m Qualifiers: Atrial fibrillation type: chronic Qualified Code(s): I48.2 - Chronic atrial fibrillation (3) CAD (coronary artery disease) Current Visit: Yes Status: Chronic Assessment and plan: Continue ASA only, will d/c plavix , patient's stent is 6 years ago Qualifiers: Coronary Disease-Associated Artery/Lesion type: [place] artery [place] vs. 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 Chronic kidney disease stage: stage 3 (moderate) Qualified Code(s): E11.22 - Type 2 diabetes mellitus with diabetic chronic kidney disease; N18.3 - Chronic kidney disease, stage 3 ( moderate) (6) Hematuria Current Visit: Yes Status: Acute Assessment and plan: Resolved with bladder irrigation, possibly traumatic from catheter placement (7) CKD (chronic kidney disease) stage 3, GFR 30-59 ml/min Current Visit: Yes Status: Chronic Assessment and plan: Chronic stable (8) Acute retention of urine Current Visit: Yes Status: Resolved (9) UTI (urinary tract infection) Current Visit: Yes Status: Suspected Assessment and plan: Suspected Mutiple prior histories Started on Zosyn based on prior cultures Follow urine culture and de-escalate prn Qualifiers: Urinary tract infection type: catheter-associated UTI Indwelling urinary catheter type: indwelling urethral catheter Encounter type: initial encounter Qualified Code(s): T83.511A - Infection and inflammatory reaction due to indwelling urethral catheter, initial encounter; N39.0 - Urinary tract infection , site not specified - Subjective Interval history: Seen and evaluated at bedside No new complains Hematuria has resolved, urology following Labs today with leukocytosis, HB stable, UA is abnormal Patient reports being on Plavix due to stents in 2010 We will discontinue Plavix at time of discharge and will continue ASA and Coumadin If Hb stabilizes, we will resume Coumadin a.m Await final urine culture - Constitutional Vitals: Temp Pulse Resp BP Pulse Ox 98.3 F 105 16 110/74 97 12/24/16 10:55 12/24/16 10:55 12/24/16 10:55 12/24/16 10:55 12/24/16 10:55 General appearance: Present: disheveled, A&O X 3, pleasant, no acute distress - Head Head exam: Present: atraumatic, normocephalic - Eye Eye exam: Present: PERRL, conjuntiva pink, sclera anicteric Pupils: Present: PERRL - Neck Neck exam general surgery: Present: supple, trachea midline. Absent: lymphadenopathy - Respiratory Respiratory exam: Present: CTAB. Absent: accessory muscle use, rales, rhonchi, wheezes - Cardiovascular Cardiovascular exam: Present: irregular rhythm, +S1, +S2. Absent: diastolic murmur, gallop, rubs, systolic murmur - GI/Abdominal GI/Abdominal exam: Present: normal bowel sounds, soft, no peritoneal signs. Absent: distended, tenderness - Additional comments: Crane draining clear urine - Extremities Exam Extremities exam: Present: warm, radial pulses palpable and symetrical. Absent : calf tenderness, cyanotic, pedal edema - Neurological Exam Neurological exam: Present: alert, CN II-XII intact, oriented X3, no focal deficits. Absent: pronater drift, facial droop, speech deficit - Skin Skin exam: Present: dry, intact Internal Medicine: Result - Labs CBC & Chem 7: 12/24/16 05:16 12/24/16 05:16 Labs: Short CBC 12/23/16 12/24/16 Range/Units 21:03 05:16 WBC 14.0 H (4.3-11.1) K/mcL Hgb 11.5 L D 11.4 L (12.9-16.9) g/dL Hct 36.1 L 34.9 L (37.5-50.1) % Plt Count 246 (140-400) K/mcL Neutrophils # 11.6 H (1.6-8.9) K/mcL BMP 12/24/16 05:16 Sodium 138 Potassium 4.5 Chloride 102 Carbon Dioxide 30 H BUN 30 H Creatinine 1.12 Glucose 196 H Calcium 8.8 Urine 12/23/16 Range/Units 22:42 Urine Color Yellow (Yellow) Urine Clarity Turbid A (Clear) Urine pH 5.5 (5.0-8.0) pH Units Ur Specific [place] 1.018 (1.010-1.025) Urine Protein 30 H (Neg-Trace) mg/dL Urine Glucose (UA) 500 H (Normal) mg/dL - ABG Interpretation ABG results: PT/INR, D-dimer PT 22.3 Seconds (9.4-12.1) H 12/24/16 05:16 - VTE Documentation of Mechanical Device: Venous foot pump, device Consult Discharge Plan - Plan Referrals: NO,PCP [Primary Care Provider] -
[2016-12-24] MEDS: Piperacillin/Tazobactam 3.375 GM in D5% in Water (Mini-Bag+) 100 ML IVPB SCH ×2 (16:00→23:56)
[2016-12-24] MEDS: Insulin DETEMIR 100 UNIT/ML X5UNITS SQ SCH (21:32)
[2016-12-25 05:58] LABS: Basophils # 0.1 K/mcL (0.0-0.2); Basophils % 0.6 %; Eosinophils # 0.2 K/mcL (0.0-0.6); Eosinophils % 2.8 %; Hematocrit 31.8 % (37.5-50.1); Hemoglobin 10.2 g/dL (12.9-16.9); Immature Granulocytes % 0.4 % (0-4); Lymphocytes # 1.3 K/mcL (0.6-4.6); Lymphocytes % 15.1 %; Mean Corpuscular HGB Conc 32.1 g/dL (31.6-35.5); Mean Corpuscular Hemoglobin 27.5 pg (28.0-33.3); Mean Corpuscular Volume 85.7 fL (83.0-100.0); Mean Platelet Volume 9.9 fL (9.4-12.4); Monocytes # 0.9 K/mcL (0.0-1.3); Monocytes % 10.8 %; Platelet Count 213 K/mcL (140-400); Red Blood Count 3.71 M/mcL (4.19-5.50); Red Cell Distribution Width 14.6 % (11.5-14.5); Segmented Neutrophils % 70.3 %
[2016-12-25 06:02] LABS: INR 1.2; Prothrombin Time 13.4 Seconds (9.4-12.1)
[2016-12-25 06:09] LABS: BUN/Creatinine Ratio 24 (6-26); Blood Urea Nitrogen 28 mg/dL (8-26); Calcium 8.2 mg/dL (8.6-10.8); Carbon Dioxide 28 mEq/L (19-29); Chloride 104 mEq/L (98-109); Glucose 250 mg/dL (70-99); Osmolality,Calculated 302 (280-300); Potassium 3.7 mEq/L (3.5-4.5); Sodium 139 mEq/L (136-145); eGFR For African Americans > 60 (> 60); eGFR For Non-African Americans > 60 (> 60)
[2016-12-25] MEDS: Metoprolol 100 MG TABLET PO SCH (08:13)
[2016-12-25] MEDS: Furosemide 40 MG TABLET PO SCH (08:13)
[2016-12-25] MEDS: Folic Acid 1 MG TABLET PO SCH (08:13)
[2016-12-25] MEDS: Diltiazem CD (24hr) 240 MG CAPSULE PO SCH (08:13)
[2016-12-25] MEDS: Piperacillin/Tazobactam 3.375 GM in D5% in Water (Mini-Bag+) 100 ML IVPB SCH (08:17)
[2016-12-25] MEDS: Insulin LISPRO 300 UNITS/3 ML VIAL SQ SCH ×2 (08:22→12:20)
--- NOTE | 2016-12-25 09:57 | Urology Progress Note ---
Date of Encounter: 12/25/16 Time of Encounter: 09:55 - Assessment and Plan (1) Urethral bleeding Current Visit: Yes Status: Acute Assessment and plan: Bleeding has resolved. Okay to resume anticoagulants per my standpoint. Continue Crane catheter. He should follow up with Dr. Salinas in 3-4 weeks for a catheter change. Progress Note Narrative: Urine clear today. Off CBI. Objective Initial Vital Signs Temp Pulse Resp BP Pulse Ox 98.0 F 111 17 180/128 100 12/23/16 08:52 12/23/16 08:52 12/23/16 08:52 12/23/16 08:52 12/23/16 08:52 - General physical appearance Present: well developed, well nourished, no distress - Respiratory Present: normal respiratory effort - Abdomen Present: soft - Genitourinary Urine Appearance: Present: Clear - Labs 12/25/16 05:43 12/25/16 05:43 Diabetes panel 12/25/16 Range/Units 05:43 Sodium 139 (136-145) mEq/L Potassium 3.7 (3.5-4.5) mEq/L Chloride 104 (98-109) mEq/L Carbon Dioxide 28 (19-29) mEq/L BUN 28 H (8-26) mg/dL Creatinine 1.15 (0.72-1.25) mg/dL Glucose 250 H (70-99) mg/dL Calcium 8.2 L (8.6-10.8) mg/dL Calcium panel 12/25/16 Range/Units 05:43 Calcium 8.2 L (8.6-10.8) mg/dL Pituitary panel 12/25/16 Range/Units 05:43 Sodium 139 (136-145) mEq/L Potassium 3.7 (3.5-4.5) mEq/L Chloride 104 (98-109) mEq/L Carbon Dioxide 28 (19-29) mEq/L BUN 28 H (8-26) mg/dL Creatinine 1.15 (0.72-1.25) mg/dL Glucose 250 H (70-99) mg/dL Calcium 8.2 L (8.6-10.8) mg/dL Adrenal panel 12/25/16 Range/Units 05:43 Sodium 139 (136-145) mEq/L Potassium 3.7 (3.5-4.5) mEq/L Chloride 104 (98-109) mEq/L Carbon Dioxide 28 (19-29) mEq/L BUN 28 H (8-26) mg/dL Creatinine 1.15 (0.72-1.25) mg/dL Glucose 250 H (70-99) mg/dL Calcium 8.2 L (8.6-10.8) mg/dL - VTE Documentation of Mechanical Device: Venous foot pump, device Consult Discharge Plan - Plan Referrals: NO,PCP [Primary Care Provider] -
[2016-12-25 11:21] VITALS: BP 127/68
--- NOTE | 2016-12-25 12:12 | Physician Discharge Referral ---
ExtendedCare Referral Info Transfer To: [facility] Provider in Charge: Dr. Del Toro Provider in Charge after Transfer: PCP Institutional Level of Care: Skilled - Diagnosis (1) HTN (hypertension) Priority: Secondary Status: Chronic (2) Atrial fibrillation Priority: Secondary Status: Chronic (3) CAD (coronary artery disease) Priority: Secondary Status: Chronic (4) Dyslipidemia Priority: Secondary Status: Chronic (5) Type 2 diabetes mellitus Priority: Secondary Status: Chronic (6) Hematuria Priority: Primary Status: Resolved (7) CKD (chronic kidney disease) stage 3, GFR 30-59 ml/min Priority: Secondary Status: Chronic (8) Acute retention of urine Priority: Primary Status: Resolved (9) UTI (urinary tract infection) Priority: Primary Status: Ruled-out Prognosis: Fair Aware of Diagnosis: Patient Aware of Prognosis: Patient - Transfer Medications Home Medications: Glimepiride [Amaryl] 4 mg PO BID 02/22/15 [History] Lovastatin 20 mg PO DAILY 02/22/15 [History] Aspirin 81 mg PO DAILY #30 tab.chew 03/07/15 [Rx] Folic Acid 1 mg PO DAILY tablet 03/07/15 [Rx] Metformin [Glucophage] 1,000 mg PO BIDWM #60 tablet 03/07/15 [Rx] Metoprolol [Lopressor] 100 mg PO BID #60 tablet 03/07/15 [Rx] Furosemide [Lasix] 40 mg PO DAILY 02/12/16 [History] Insulin ASPART [Novolog] 2 - 10 units SQ ACHS 02/12/16 [History] Acetaminophen [Tylenol] 650 mg PO HS 03/11/16 [History] Acetaminophen [Tylenol] 650 mg PO Q6H PRN 03/11/16 [History] Diltiazem CD (24hr) [Cardizem CD] 240 mg PO DAILY 03/11/16 [History] Loperamide [Imodium] 2 mg PO PRN PRN MDD 8 mg 03/11/16 [History] SitaGLIPtin [Januvia] 100 mg PO DAILY 06/10/16 [History] Warfarin [Coumadin] 2 mg PO DAILY 06/10/16 [History] Warfarin [Coumadin] 2.5 mg PO DAILY 06/10/16 [History] Insulin Glargine,Hum.rec.anlog [Lantus Solostar] 10 unit SQ HS 12/09/16 [History ] Lisinopril [Zestril] 5 mg PO DAILY 12/09/16 [History] Pantoprazole Sodium 20 mg PO DAILY 12/09/16 [History] Betamethasone Melissa 0.1% Crm [Valisone 0.1%] 1 appl TP BID PRN 12/23/16 [History] Hydrophilic Ointment [Aquabase] 1 appl TP BID PRN 12/23/16 [History] Ketoconazole Shampoo [Nizoral Shampoo] 1 appl TP AD 12/23/16 [History] Docusate [Colace] 100 mg PO BID PRN #0 capsule 12/25/16 [Rx] Allergies/Adverse Reactions: Allergies No Known Allergies Allergy (Verified 12/09/16 09:52) - Respiratory Orders Smoking Cessation: Smoking cessation has been advised. For more information, call the [place] Tobacco Quit Line at 4-597-VKFR-NOW. - Lab Orders Lab Orders: Other (include drug levels w/frequency) (INR q3-4 days, goal INR 2-3 ) - Advance Directives Code Status: Full Code - Mobility Orders Ambulate - Rehabiliation Orders Rehab Potential: Fair - Diet Orders No Added Salt (LAINA), No Concentrated Sweets, Renal, Cardiac CERTIFICATION: I certify that the transfer of the above named patient to an Extended Care Facility is necessary for the continuing treatment of the diagnosis listed. The above information is true and accurate reflection of patient's current condition. Confidential - Redisclosure prohibited without a patient's written consent.
[2016-12-25] MEDS ORDERED: Aspirin Enteric Coated 81 MG Tablet PO SCH (12:15)
--- NOTE | 2016-12-25 12:17 | Discharge Summary ---
Date of Encounter: 12/25/16 Time of Encounter: 12:12 - Discharge Diagnosis (1) HTN (hypertension) Priority: Secondary Status: Chronic Qualifiers: Hypertension type: essential hypertension Qualified Code(s): I10 - Essential (primary) hypertension (2) Atrial fibrillation Priority: Secondary Status: Chronic Qualifiers: Atrial fibrillation type: chronic Qualified Code(s): I48.2 - Chronic atrial fibrillation (3) CAD (coronary artery disease) Priority: Secondary Status: Chronic Qualifiers: Coronary Disease-Associated Artery/Lesion type: [place] artery [place] vs. 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 Chronic kidney disease stage: stage 3 (moderate) Qualified Code(s): E11.22 - Type 2 diabetes mellitus with diabetic chronic kidney disease; N18.3 - Chronic kidney disease, stage 3 ( moderate) (6) Hematuria Priority: Primary Status: Resolved (7) CKD (chronic kidney disease) stage 3, GFR 30-59 ml/min Priority: Secondary Status: Chronic (8) Acute retention of urine Priority: Primary Status: Resolved (9) UTI (urinary tract infection) Priority: Primary Status: Ruled-out Qualifiers: Urinary tract infection type: catheter-associated UTI Indwelling urinary catheter type: indwelling urethral catheter Encounter type: initial encounter Qualified Code(s): T83.511A - Infection and inflammatory reaction due to indwelling urethral catheter, initial encounter; N39.0 - Urinary tract infection , site not specified - Discharge Medications Home Medications: Glimepiride [Amaryl] 4 mg PO BID 02/22/15 [History] Lovastatin 20 mg PO DAILY 02/22/15 [History] Aspirin 81 mg PO DAILY #30 tab.chew 03/07/15 [Rx] Folic Acid 1 mg PO DAILY tablet 03/07/15 [Rx] Metformin [Glucophage] 1,000 mg PO BIDWM #60 tablet 03/07/15 [Rx] Metoprolol [Lopressor] 100 mg PO BID #60 tablet 03/07/15 [Rx] Furosemide [Lasix] 40 mg PO DAILY 02/12/16 [History] Insulin ASPART [Novolog] 2 - 10 units SQ ACHS 02/12/16 [History] Acetaminophen [Tylenol] 650 mg PO HS 03/11/16 [History] Acetaminophen [Tylenol] 650 mg PO Q6H PRN 03/11/16 [History] Diltiazem CD (24hr) [Cardizem CD] 240 mg PO DAILY 03/11/16 [History] Loperamide [Imodium] 2 mg PO PRN PRN MDD 8 mg 03/11/16 [History] SitaGLIPtin [Januvia] 100 mg PO DAILY 06/10/16 [History] Warfarin [Coumadin] 2 mg PO DAILY 06/10/16 [History] Warfarin [Coumadin] 2.5 mg PO DAILY 06/10/16 [History] Insulin Glargine,Hum.rec.anlog [Lantus Solostar] 10 unit SQ HS 12/09/16 [History ] Lisinopril [Zestril] 5 mg PO DAILY 12/09/16 [History] Pantoprazole Sodium 20 mg PO DAILY 12/09/16 [History] Betamethasone Melissa 0.1% Crm [Valisone 0.1%] 1 appl TP BID PRN 12/23/16 [History] Hydrophilic Ointment [Aquabase] 1 appl TP BID PRN 12/23/16 [History] Ketoconazole Shampoo [Nizoral Shampoo] 1 appl TP AD 12/23/16 [History] Docusate [Colace] 100 mg PO BID PRN #0 capsule 12/25/16 [Rx] Allergies/Adverse Reactions: Allergies No Known Allergies Allergy (Verified 12/09/16 09:52) Date of admission: 12/23/16 15:31 Primary care physician: PCP NO Discharging clinician: Johann Del Toro Anticipated date of discharge: 12/25/16 - Patient Status Disposition: Transfer SNF Condition: Good Functional capacity at discharge: independent ambulation Overall status at discharge: patient is progressing back to baseline - Discharge Instructions Follow Up With: NO,PCP [Primary Care Provider] - - Diet and Activity Activity: resume usual activities as tolerated Diet: diabetic diet, low fat, low cholesterol, low salt diet Interval History: See below Hospital course: 66 year old male with hypertension, hyperlipidemia, type 2 diabetes, coronary artery disease status post stent placement, atrial fibrillation on Coumadin, 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 Of note, patient had a stent placed n 2010 and is on ASA, Plavix and Xouamdin Chart review does not show prior diagnoses of LV thrombus or an indication for triple therapy Patient's UA was dirty but urine culture was negative He is seen at bedside this morning, he has no new complains VSS, chest is clear, HS S1, S2, abdomen is soft, with calvillo draining bloody urine His Hb/HCt decreased slightly from the hematuria but is stable at 10 He is clinically stable to return to SNF I will discontinue Plavix at this time but continue ASA, Coumadin as well as other home meds Plan of care was discussed with the patient and he verbalized understanding - Time Spent with Patient Total time spent providing and/or coordinating discharge services: Less than 30 minutes - Constitutional Vitals: Temp Pulse Resp BP Pulse Ox 98.3 F 92 17 127/68 96 12/25/16 11:19 12/25/16 11:19 12/25/16 11:19 12/25/16 11:19 12/25/16 11:19 General appearance: Present: A&O X 3, pleasant, no acute distress - Head Head exam: Present: atraumatic, normocephalic - Eye Eye exam: Present: PERRL, conjuntiva pink, sclera anicteric Pupils: Present: PERRL - Neck Neck exam general surgery: Present: supple, trachea midline. Absent: lymphadenopathy - Respiratory Respiratory exam: Present: CTAB. Absent: accessory muscle use, rales, rhonchi, wheezes - Cardiovascular Cardiovascular exam: Present: RRR, +S1, +S2. Absent: diastolic murmur, gallop, rubs, systolic murmur - GI/Abdominal GI/Abdominal exam: Present: normal bowel sounds, soft, no peritoneal signs. Absent: distended, tenderness - Additional comments: Calvillo with clear urine - Extremities Exam Extremities exam: Present: warm, radial pulses palpable and symetrical. Absent : calf tenderness, cyanotic, pedal edema - Neurological Exam Neurological exam: Present: alert, CN II-XII intact, oriented X3, no focal deficits. Absent: pronater drift, facial droop, speech deficit - Skin Skin exam: Present: dry, intact - VTE Documentation of Mechanical Device: Venous foot pump, device
[2016-12-25] MEDS ORDERED: *HR* Warfarin 5 MG TABLET PO ONE (18:00)
[2016-12-25] MEDS ORDERED: *HR* Warfarin 2.5 MG TABLET PO ONE (18:00)
== END 2016-12-25 14:35 | DRG 700 ==
LOC: EMEROO 08:50 → 3BNU 15:31
PROVIDERS: ADMIT Nurse Practitioner Family; ATTEND Nurse Practitioner Family